=== PATIENT | male | born 1965 | race Caucasian/White ===

== ENCOUNTER 2022-09-26 16:30 | Outpatient (CLI) | payer MEDICAID | END 2022-09-26 16:31 | disposition short-term general hospital (02) | LOC: EMS 16:30 | DX: M25.551 Pain in right hip (principal); W01.0XXA Fall on same level from slipping, tripping and stumbling without subsequent striking against object, initial encounter; Y92.414 Local residential or business street as the place of occurrence of the external cause | CPT/HCPCS: A0425; A0429; A0999 ==

== ENCOUNTER 2022-10-02 15:38 | Outpatient (CLI) | payer MEDICAID | END 2022-10-02 15:39 | disposition short-term general hospital (02) | LOC: EMS 15:38 | DX: M79.604 Pain in right leg (principal); M25.551 Pain in right hip; M79.89 Other specified soft tissue disorders; Z98.890 Other specified postprocedural states | CPT/HCPCS: A0425; A0429; A0999 ==